=== PATIENT | male | born 1980 | race Caucasian/White ===

== ENCOUNTER 2020-03-09 19:34 | Observation (INO) ==
[2020-03-09] MEDS ORDERED: methylPREDNISolone SOD SUC 125 MG/2 ML VIAL IV STA (21:01)
[2020-03-09] MEDS ORDERED: ONDANSETRON 4 MG/2 ML VIAL IV STA (21:01)
[2020-03-09] MEDS ORDERED: ALBUTEROL/IPRATROPIUM 3 ML NEB RESP TX STA (21:01)
[2020-03-09] MEDS ORDERED: MORPHINE 4 MG/1 ML VIAL IV STA (21:01)
[2020-03-09] MEDS ORDERED: ASPIRIN 325 MG TABLET PO STA (21:01)
[2020-03-09] MEDS ORDERED: FUROSEMIDE 40 MG/4 ML VIAL IV STA (21:01)
[2020-03-09] MEDS ORDERED: NITROGLYCERIN 2% OINT 1 INCH/GM PACK TOP STA (21:01)
[2020-03-09 21:13] LABS: Basophils # 0.1 10*3/uL (0.0-0.2); Basophils % 1.4 % (0.0-0.8); Eosinophils # 0.5 10*3/uL (0.0-0.87); Hematocrit 44.2 VOL% (42.0-52.0); Immature Granulocytes % 0.3 %; Immature Granulocytes Absolute 0.02 #; Lymphocytes # 1.7 10*3/uL (1.4-4.0); Lymphocytes % 29.7 % (21.2-54.2); Mean Corpuscular HGB Conc 33.9 GM/DL (32-36); Mean Corpuscular Volume 84.2 FL (87-102); Mean Platelet Volume 11.7 FL (9.6-12.0); Neutrophils % 51.6 % (38.7-73.9); Platelet Count 181 T/CUMM (130-400); Red Blood Count 5.25 MC/CUMM (3.8-5.5); White Blood Count 5.8 T/CUMM (4-12)
[2020-03-09 21:27] LABS: Albumin 3.7 G/DL (3.4-5.0); Bilirubin,Total 0.6 MG/DL (0.2-1.0); Calcium 9.1 MG/DL (8.5-10.1); Osmolality,Calculated 274.7 MOS/KG (273-304); Total Protein 7.4 G/DL (6.4-8.3)
[2020-03-09 22:24] LABS: Bilirubin,Urine Negative (Negative); Blood, Urine Small mg/dL (Negative); Glucose,Urine (UA) Negative (Negative); Ketones,Urine Negative (Negative); Nitrite,Urine Negative (Negative); Protein,Urine Negative; RBC,Urine 4 /HPF (0-4); Squamous Epithelial Cell,Urine Occasional /HPF (0-10); Urine Appearance CLEAR (Clear); Urine Color Straw (Yellow); Urine Urobilinogen < 2.0 EU/DL (0.2-1.0); WBC,Urine 3 /HPF (0-6)
[2020-03-09 23:11] LABS: Barbiturates Screen,Urine Negative (Negative); Benzodiazepines Screen,Urine Negative (Negative); Cannabinoid Screen,Urine Positive (Negative); Opiate Screen,Urine Negative (Negative); Phencyclidine Screen,Urine Negative (Negative)
[2020-03-09] MEDS ORDERED: ENOXAPARIN 100 MG/ML SYRINGE SUBCUT STA (23:12)
[2020-03-09] MEDS ORDERED: ENOXAPARIN 120 MG/0.8 ML SYRINGE SUBCUT ONE (23:15)
[2020-03-10] MEDS ORDERED: ONDANSETRON 4 MG/2 ML VIAL IV PRN (01:33)
[2020-03-10] MEDS ORDERED: DOCUSATE SODIUM 100 MG CAPSULE PO PRN (01:33)
[2020-03-10] MEDS ORDERED: hydrALAZINE 20 MG/1 ML VIAL IV PRN (01:33)
[2020-03-10] MEDS ORDERED: ALUMINUM/MAGNES/SIMETH MAX STR 30 ML UDCUP PO PRN (01:33)
[2020-03-10] MEDS ORDERED: ACETAMINOPHEN 325 MG TABLET PO PRN (01:33)
[2020-03-10] MEDS ORDERED: MORPHINE 4 MG/1 ML VIAL IV PRN (01:33)
[2020-03-10] MEDS ORDERED: ALBUTEROL 2.5 MG/3 ML NEB RESP TX PRN (01:40)
[2020-03-10 04:21] LABS: Basophils % 0.6 % (0.0-0.8); Eosinophils % 0.2 % (0.00-10.9); Hematocrit 44.5 VOL% (42.0-52.0); Hemoglobin 14.8 GM/DL (14.0-18.0); Immature Granulocytes % 0.3 %; Immature Granulocytes Absolute 0.02 #; Lymphocytes # 0.5 10*3/uL (1.4-4.0); Lymphocytes % 8.5 % (21.2-54.2); Mean Corpuscular HGB Conc 33.3 GM/DL (32-36); Mean Corpuscular Volume 85.9 FL (87-102); Mean Platelet Volume 9.7 FL (9.6-12.0); Monocytes % 0.8 % (1.7-12.7); Neutrophils % 89.6 % (38.7-73.9); Platelet Count 275 T/CUMM (130-400); Red Blood Count 5.18 MC/CUMM (3.8-5.5); White Blood Count 6.3 T/CUMM (4-12)
[2020-03-10 04:33] LABS: PT Patient Result 11.1 SECS (9.8-11.9)
[2020-03-10 04:54] LABS: Albumin 3.6 G/DL (3.4-5.0); Bilirubin,Total 0.4 MG/DL (0.2-1.0); Calcium 8.8 MG/DL (8.5-10.1); Osmolality,Calculated 280.5 MOS/KG (273-304); Risk Ratio 2.85; Thyroid Stimulating Hormone 0.426 uIU/ml (0.358-3.74); Total Protein 7.4 G/DL (6.4-8.3); VLDL CHOLESTEROL 10.2 MG/DL
[2020-03-10] MEDS: ALBUTEROL 2.5 MG/3 ML NEB RESP TX SCH ×2 (07:18→14:13)
[2020-03-10] MEDS ORDERED: ASPIRIN CHEW 81 MG TABLET PO ONE (08:57)
[2020-03-10] MEDS ORDERED: predniSONE 20 MG TABLET PO SCH (09:00)
[2020-03-10] MEDS ORDERED: amLODIPine 5 MG TABLET PO SCH ×2 (09:00→13:32)
[2020-03-10] MEDS ORDERED: ASPIRIN EC 81 MG TABLET PO SCH (09:00)
[2020-03-10] MEDS ORDERED: amLODIPine 5 MG TABLET PO ONE (13:33)
[2020-03-10 13:38] VITALS: BP 147/104
[2020-03-10] MEDS ORDERED: ENOXAPARIN 40 MG/0.4 ML SYRINGE SUBCUT SCH (21:00)
[2020-03-10] MEDS ORDERED: MONTELUKAST 10 MG TABLET PO SCH (21:00)
[2020-03-11] MEDS ORDERED: amLODIPine 10 MG TABLET PO SCH (09:00)
== END 2020-03-10 14:11 | disposition home or self-care (01) ==
LOC: N.ED 19:34 → N.EDINP 19:34 → N.ED 03-10 14:10 → N.EDINP 03-10 14:10
PROVIDERS: ADMIT Nurse Practitioner Family; ATTEND Nurse Practitioner Family